=== PATIENT | female | born 1990 | race Caucasian/White ===

== ENCOUNTER 2016-09-09 11:03 | Emergency (ER) | payer OTHER ==
[2016-09-09] MEDS ORDERED: ALBUTEROL 3 ML DEYVIAL IH ONE (11:08)
--- NOTE | 2016-09-09 11:22 | EDPHY ---
H & P Stated Complaint: Asthma Exacerbation Time Seen by Provider: 09/09/16 11:09 HPI/ROS: CHIEF COMPLAINT: Asthma exacerbation HISTORY OF PRESENT ILLNESS: The patient is a 26 y/o female with asthma complaining of wheezing and shortness of breath onset suddenly while working this morning. She felt normal upon waking today and denies sore throat, fever, or rhinorrhea. Her wheezing improved with an albuterol nebulizer treatment upon arrival in the ED. She currently complains of chest tightness, but denies ongoing shortness of breath. She notes she started propranolol 1.5 month ago for tachycardia. She normally does not use any medication to control her asthma. Her last exacerbation was a few months ago when she walked into an operating room that had just been cleaned with bleach. REVIEW OF SYSTEMS: Constitutional: No fever, no chills Eyes: No visual changes ENT: No sore throat Respiratory: see HPI Cardiac: No chest pain Gastrointestinal: No nausea, no vomiting, no abdominal pain Genitourinary: No hematuria, no dysuria Musculoskeletal: No leg pain or swelling Skin: No rash Neurological: No headache, no weakness Psychiatric: No depression Source: Patient - Personal History Current Tetanus/Diphtheria Vaccine: Yes Current Tetanus Diphtheria and Acellular Pertussis (TDAP): Yes - Medical/Surgical History PMH: PMH includes: 1. Asthma 2. Tachycardia - propranolol Hx Asthma: Yes Hx Chronic Respiratory Disease: No Hx Diabetes: No Hx Cardiac Disease: No Hx Renal Disease: No Hx Cirrhosis: No Hx Alcoholism: No Hx HIV/AIDS: No Hx Splenectomy or Spleen Trauma: No Other PMH: asthma - Social History Smoking Status: Never smoked Additional Social History: Non-smoker. PCP: Dr. Afsaneh Valenzuela - Physical Exam Exam: General Appearance: Alert, no distress Eyes: Pupils equal and round, no conjunctival pallor or injection ENT, Mouth: Mucous membranes moist Neck: Normal inspection Respiratory: Lungs are clear to auscultation Cardiovascular: Regular rate and rhythm Gastrointestinal: Abdomen is soft and non- tender Neurological: A&O, nonfocal, normal gait Skin: Warm and dry, no rash Extremities: Nontender, no pedal edema Psychiatric: Mood and affect normal Constitutional: Initial Vital Signs Temperature (C) 36.9 C 09/09/16 11:08 Heart Rate 65 09/09/16 11:08 Respiratory Rate 14 09/09/16 11:08 Blood Pressure 131/81 H 09/09/16 11:08 O2 Sat (%) 99 09/09/16 11:08 O2 Delivery Mode Room Air Allergies/Adverse Reactions: azithromycin Allergy (Verified 09/09/16 11:07) morphine Allergy (Verified 09/09/16 11:07) Home Medications: Medication Instructions Recorded Albuterol 2 puffs IH TID PRN #1 aerosol 09/09/16 Fluticasone/Salmeter 250/50Mcg 1 each IH DAILY #1 disk 09/09/16 [Advair 250/50 (*)] Medical Decision Making ED Course/Re-evaluation: This is a 26 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 RN noted expiratory wheezing on his initial exam. These resolved by my assessment after an albuterol nebulizer. The patient continues to complain of chest tightness, but her dyspnea has resolved. Plan to monitor for recurrent symptoms. Patient has not had recurrent wheezing while here. Feels much better and wants to go home. She will be discharged with scripts for Advair and albuterol and referral to follow up with her PCP. Return precautions given. She is comfortable with this plan. - Data Points Medications Given: Discontinued Medications Albuterol (Proventil Neb) 3 ml IH EDNOW ONE Stop: 09/09/16 11:09 Last Admin: 09/09/16 11:11 Dose: 3 ml Albuterol Sulfate (Proventil Inh Prepack) 1 mdi TAKEHOME EDNOW ONE Stop: 09/09/16 12:03 Last Admin: 09/09/16 12:04 Dose: 1 mdi Departure - Departure Disposition: Home, Routine, Self-Care Clinical Impression: Exacerbation of asthma Condition: Good Instructions: Asthma (ED), Albuterol (By breathing), Fluticasone/Salmeterol ( By breathing) Additional Instructions: 1. Use Advair daily as prescribed. 2. Use 2 puffs of albuterol inhaler up to 3 times daily as needed for wheezing or shortness of breath. 3. 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 4. Return to the ED for any worsening of condition. Referrals: Aimee Valenzuela PA [Primary Care Provider] - As per Instructions Prescriptions: Fluticasone/Salmeter 250/50Mcg [Advair 250/50 (*)] 1 each IH DAILY #1 disk Albuterol 2 puffs IH TID PRN #1 aerosol PRN Reason: Wheezing Report Scribed for: Lucy Bro Report Scribed by: Daya Garces Date of Report: 09/09/16 Time of Report: 11:23 Physician Review and Approval Statement: 09/09/16 11:23 Portions of this note were transcribed by a medical imaging technician. I personally performed a history, physical exam, medical decision making, and confirmed accuracy of information the transcribed note.
[2016-09-09] MEDS ORDERED: ALBUTEROL INH PREPACK MDI TAKEHOME ONE ×2 (12:01→12:02)
[2016-09-09 12:04] VITALS: BP 114/65; PULSE 58; RESP 16; TEMP 97; O2SAT 96
== END 2016-09-09 12:07 | disposition home or self-care (01) ==
DX: J45.901 Unspecified asthma with (acute) exacerbation (principal)

== ENCOUNTER 2016-10-04 11:28 | Emergency (ER) | payer OTHER ==
[2016-10-04] MEDS ORDERED: DEXAMETHASONE 10 MG/ML VIAL ONE (11:32)
[2016-10-04] MEDS ORDERED: IPRATROPIUM/ALBUTEROL 3 ML DEYVIAL ONE ×2 (11:32→12:40)
[2016-10-04] MEDS ORDERED: DEXAMETHASONE VARIABLE DOSE IVP/PO ONE (11:35)
[2016-10-04] MEDS ORDERED: IPRATROPIUM/ALBUTEROL 3 ML DEYVIAL IH ONE ×3 (11:38→12:41)
[2016-10-04] MEDS ORDERED: NS 1,000 ML IV ONE (11:38)
--- NOTE | 2016-10-04 11:40 | EDPHY ---
H & P Time Seen by Provider: 10/04/16 11:34 - Medical/Surgical History Hx Asthma: Yes Hx Chronic Respiratory Disease: No Hx Diabetes: No Hx Cardiac Disease: No Hx Renal Disease: No Hx Cirrhosis: No Hx Alcoholism: No Hx HIV/AIDS: No Hx Splenectomy or Spleen Trauma: No Other PMH: asthma - Social History Smoking Status: Never smoked Constitutional: Initial Vital Signs Temperature (C) 37 C 10/04/16 11:28 Heart Rate 69 10/04/16 11:28 Respiratory Rate 25 H 10/04/16 11:28 Blood Pressure 152/99 H 10/04/16 11:28 O2 Sat (%) 96 10/04/16 11:28 O2 Delivery Mode Room Air Allergies/Adverse Reactions: azithromycin Allergy (Verified 09/09/16 11:07) milk Allergy (Verified 10/04/16 11:38) morphine Allergy (Verified 09/09/16 11:07) Home Medications: Medication Instructions Recorded Albuterol 2 puffs IH TID PRN #1 aerosol 09/09/16 Fluticasone/Salmeter 250/50Mcg 1 each IH DAILY #1 disk 09/09/16 [Advair 250/50 (*)] Albuterol [Proventil Inhaler] 1 - 2 puffs IH Q4 #1 mdi 10/04/16 Famotidine [Pepcid 20 MG (OTC)] 20 mg PO DAILY #10 tab 10/04/16 Propranolol HCl 10/04/16 predniSONE 40 mg PO DAILY #10 tab 10/04/16 Medical Decision Making ED Course/Re-evaluation: CHIEF COMPLAINT: Asthma exacerbation secondary to allergic reaction HISTORY OF PRESENT ILLNESS: 26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 She developed a rash on her forehead potentially from the OR hat which she has worn many times. She then developed redness on her trunk and began wheezing significantly. She does have a significant asthma history. She denies any other symptoms or any other exposures. REVIEW OF SYSTEMS: A 10 point review of systems was performed and is negative with the exception of the elements mentioned in the history of present illness. PHYSICAL EXAM: HR, BP, O2 Sat, RR. Temp noted General Appearance: Alert, well hydrated, appropriate, and non-toxic appearing. She is red on her trunk and wheezing a bit Head: Atraumatic without scalp tenderness or obvious injury Eyes: Pupils equal, round, reactive to light and accommodation, EOMI, no trauma , no injection. Ears: Clear bilaterally, no perforation, normal landmarks Nose: Atraumatic, no rhinorrhea, clear. Throat: There is no erythema or exudates, no lesions, normal tonsils, mucus membranes moist. Neck: Supple, 2+ carotid upstroke, nontender, no lymphadenopathy. Respiratory: No retractions, no distress, significant wheezes in all jara, and no accessory muscle use. Lungs are clear to auscultation bilaterally. Cardiovascular: Regular rate and rhythm, no murmurs, rubs, or gallops. Bilateral carotid, radial, dorsalis pedis, and posterior tibial pulses intact. Good capillary refill all extremities. Gastrointestinal: Abdomen is soft, nontender, non-distended, no masses, no rebound, no guarding, no peritoneal signs. Musculoskeletal: Normal active ROM of all extremities, atraumatic. Neurological: Alert, appropriate, and interactive. The patient has normal DTRs and non-focal cranial nerves, motor, sensory, and cerebellar exam. Skin: Truncal erythematous rash with urticarial component that is confluent. good turgor, no nodules on palpation. 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 The 12 lead EKG was interpreted by myself. See hard copy and/or "tracemaster" electronic copy for interpretation. Normal sinus mechanism no ischemia MEDICAL DECISION MAKING: This patient is having an allergic reaction which is caused her to have an asthma exacerbation. She received 0.3 mg of epinephrine IM upon her arrival. She is receiving a duo nebulizer treatment. She is receiving Heliox. I also gave her 10 mg of IV Decadron and 40 mg of IV Pepcid and 25 mg of IV Benadryl. She is feeling much much better at this point. On serial examination her rash in wheezing or completely gone. I will keep her on prednisone for 5 days and she will follow up with her primary care doctor. She did develop some chest tightness during her asthma exacerbation which is resolved. I performed an EKG during that tightness and it is unremarkable. - Data Points Medications Given: Discontinued Medications Albuterol/Ipratropium (Duoneb) 3 ml IH EDNOW ONE Stop: 10/04/16 11:39 Last Admin: 10/04/16 11:40 Dose: 3 ml Albuterol/Ipratropium (Duoneb) 3 ml IH EDNOW ONE Stop: 10/04/16 12:41 Last Admin: 10/04/16 12:44 Dose: 3 ml Dexamethasone Sodium Phosphate (Decadron) 10 mg IVP/PO EDNOW ONE Stop: 10/04/16 11:36 Last Admin: 10/04/16 11:40 Dose: 10 mg Epinephrine HCl (Epinephrine) 0.3 mg IM EDNOW ONE Stop: 10/04/16 11:39 Last Admin: 10/04/16 11:40 Dose: 0.3 mg Famotidine (Pepcid) 40 mg IVP EDNOW ONE Stop: 10/04/16 12:03 Last Admin: 10/04/16 12:10 Dose: 40 mg Sodium Chloride (Ns) 1,000 mls @ 0 mls/hr IV EDNOW ONE PRN Reason: Wide Open Stop: 10/04/16 11:39 Last Admin: 10/04/16 11:42 Dose: 1,000 mls Ketorolac Tromethamine (Toradol) 30 mg IVP EDNOW ONE Stop: 10/04/16 12:03 Last Admin: 10/04/16 12:08 Dose: 30 mg Departure - Departure Disposition: Home, Routine, Self-Care Clinical Impression: Allergic reaction, Exacerbation of asthma Condition: Good Instructions: Urticaria (ED), Asthma (ED) Prescriptions: Famotidine [Pepcid 20 MG (OTC)] 20 mg PO DAILY #10 tab Albuterol [Proventil Inhaler] 1 - 2 puffs IH Q4 #1 mdi predniSONE 40 mg PO DAILY #10 tab
--- NOTE | 2016-10-04 11:54 | CPEKG ---
Heart Rate: 65 RR Interval: 923 P-R Interval: 152 QRSD Interval: 76 QT Interval: 420 QTC Interval: 437 P [place]: 55 QRS [place]: 67 T Wave [place]: 37 EKG Severity - NORMAL ECG - EKG Impression: SINUS RHYTHM Electronically Signed By: Ricky Jin 04-Oct-2016 12:50:34
[2016-10-04] MEDS ORDERED: KETOROLAC 30 MG/1 ML SDV IVP ONE (12:02)
[2016-10-04] MEDS ORDERED: FAMOTIDINE 20 MG/2 ML SDV IVP ONE (12:02)
[2016-10-04] MEDS ORDERED: KETOROLAC 30 MG/1 ML SDV ONE (12:03)
[2016-10-04 13:31] VITALS: BP 101/63; PULSE 74; RESP 20; TEMP 98.1; O2SAT 97
== END 2016-10-04 13:33 | disposition home or self-care (01) ==
DX: T78.40XA Allergy, unspecified, initial encounter (principal); J45.901 Unspecified asthma with (acute) exacerbation
CPT/HCPCS: 96374; J1885

== ENCOUNTER 2016-12-05 09:13 | Day surgery (SDC) | payer OTHER ==
[2016-12-05] MEDS ORDERED: LR 1,000 ML IV ONE (09:49)
[2016-12-05] MEDS ORDERED: ROPIVACAINE HCL 20 MG/10 ML INJ EP ONE ×3 (10:09→11:30)
[2016-12-05] MEDS ORDERED: ceFAZolin 2 GM/DEXTROSE 100 ML IV ONE (10:30)
[2016-12-05] MEDS ORDERED: BUPIVACAINE 0.25% 30 ML SDV ONE (11:01)
[2016-12-05] MEDS ORDERED: PROPOFOL/EMULSION 500 MG/50 ML BOTTLE IV ONE (11:10)
[2016-12-05] MEDS ORDERED: fentaNYL 100 MCG/2 ML INJ ONE (11:10)
[2016-12-05] MEDS ORDERED: DEXAMETHASONE 4 MG/ML VIAL ONE (11:21)
[2016-12-05] MEDS ORDERED: ONDANSETRON 4 MG/2 ML VIAL ONE (12:59)
--- NOTE | 2016-12-05 14:20 | GOP ---
[f rep st] OPERATIVE REPORT DATE OF OPERATION: 12/05/2016 SURGEON: Laura Luis MD ETCHER APPRENTICE PHOTOENGRAVING: Kathy Simental, PAC was medically required for positioning of the leg during arthroscopi c ACL reconstruction and careful retraction of vital neurovascular structures during hamstring harve st. PREOPERATIVE DIAGNOSIS: Left knee anterior cruciate ligament tear, medial meniscus tear, synovitis, lateral meniscus tear. POSTOPERATIVE DIAGNOSIS: Left knee anterior cruciate ligament tear, medial meniscus tear, synovitis , lateral meniscus tear. PROCEDURE PERFORMED: 1. Arthroscopic anterior cruciate ligament reconstruction with a semitendinosus gracilis hamstring autograft. 2. Arthroscopic extensive synovectomy. 3. Arthroscopic partial lateral meniscectomy. FINDINGS: ESTIMATED BLOOD LOSS: Minimal. INDICATIONS: 26-year-old female, injury to the left knee. Clinical radiographs and MRI confirmed A CL tear, meniscal pathology. Also had a tibial plateau injury and fracture. She waited out to heal the plateau fracture as well as range of motion and swelling control. The patient elects for opera tive intervention of unstable knee. DESCRIPTION OF PROCEDURE: Patient identified in the preoperative holding area. Consent, laterality , and preoperative antibiotics were confirmed delivered, and all questions were answered. The knee had no swelling. Skin looked excellent. She had a small keloid on the anterolateral patella. She had full flexion, symmetric to 150 degrees, unstable Donald's, positive pivot-shift. The patient was brought into the operating room. Spinal anesthesia. She had monitored anesthesia c are. Left thigh tourniquet placed. Left lower extremity prepped and draped in the usual sterile fa shion. Surgical time-out was performed. She cooperated with the surgical time-out in the operating room as well. Hamstring harvest ensued. Made a pes incision. Blunt dissection down to the pes tendons. Sartoriu s fascia was taken in line. We harvested the semitendinosus, and this looked small, and thus, we deluna rvested the gracilis as well, put it on the back table. We stripped off the muscle and fashioned a quadrupled over semitendinosus gracilis graft according to the Arthrex graft link, with 2 reversed t ensioning tightropes. I set this to a 20 funes-meter tension. Attention was then turned to the arthroscopic portion. Esmarch exsanguination to 250 mmHg. Total t ourniquet time was 50 minutes. Standard 2-portal technique diagnostic arthroscopy included grade 0 patella, grade 0/1 scuffing of the trochlea. The medial compartment looked excellent. The medial m eniscus had no evidence of injury. There was no redness of the meniscal capsular junction. This wa s intact and stable. The ACL was torn just off the femoral insertion and footprint. No cyclops les ion. It was 99% tear off the posterolateral bundle and anteromedial bundle. The lateral meniscus l ooked frayed at the posterior root. It was nice and stable. The cartilage was grade 0. Extensive synovectomy was performed of the anterior, medial, lateral compartment to improve with visualization and take care of the synovitis. We did an ACL debridement. Marked the posterior bifurcate ridge f or the femoral insertion and marked tangential to the anterior horn lateral meniscus. With FlipCutt ers on either side, we did a 22 mm socket with a 40 mm interosseous length. We parked loops of sutu res on either side, and then passed the graft easily to predetermined marin at the 20 mm broderick of gra ft with 20 mm of graft into each socket. We took the knee through a flexion-extension cycle of abou t 25 times and then full extension with reversed Donald. We tensioned down the tightropes. We too k final fluoroscopic pictures in 90 degrees flexion extension without any impingement. All debris w as removed. We removed all fluid. We closed the portals with nylon, and the lateral-based incision of the thigh with nylon, as she stated that she does get keloids. We closed the pes anserinus inci audelia with 4-0 Monocryl and nylon, all monofilament sutures. She states that Vicryl does not agree w ith her. Xeroform, 4 x 4's, ABD, Kam wrap used. GRAFT CONSTRUCT: A 10 mm quadrupled semitendinosus gracilis graft, 69 mm running length, 10 mm diam eter, 20 funes-meter tension. COMPLICATIONS: None. TOTAL TOURNIQUET TIME: 50 minutes. DISPOSITION: Extubated, awake, to the PACU in stable condition. /[id number]/MODL
== END 2016-12-05 14:25 | disposition home or self-care (01) ==
LOC: FSGY 09:13
PROVIDERS: ATTEND Orthopaedic Surgery
PROC: 0KBR0ZZ Excision of Left Upper Leg Muscle, Open Approach (ICD-10-PCS; principal; 2016-12-05 10:45)
PROC: 0MQP4ZZ Repair Left Knee Bursa and Ligament, Percutaneous Endoscopic Approach (ICD-10-PCS; principal; 2016-12-05 10:45)
PROC: 0SBD4ZZ Excision of Left Knee Joint, Percutaneous Endoscopic Approach (ICD-10-PCS; principal; 2016-12-05 10:45)
DX: S83.512A Sprain of anterior cruciate ligament of left knee, initial encounter (principal); S83.242A Other tear of medial meniscus, current injury, left knee, initial encounter; M65.862 Other synovitis and tenosynovitis, left lower leg; S83.282A Other tear of lateral meniscus, current injury, left knee, initial encounter
CPT/HCPCS: C1713; J0690; J1100; J1200; J2405; J2704; J2795; J3010

== ENCOUNTER → 2017-08-09 | Outpatient (CLI) | payer OTHER | LOC: FIMAGING 15:12 | PROVIDERS: ATTEND Orthopaedic Surgery | DX: M71.22 Synovial cyst of popliteal space [Baker], left knee (principal) ==

== ENCOUNTER 2018-07-17 14:47 | Emergency (ER) | payer OTHER ==
[2018-07-17 14:53] VITALS: BP 129/57
--- NOTE | 2018-07-17 15:30 | EDPHY ---
H & P Time Seen by Provider: 07/17/18 15:20 HPI/ROS: CLINICAL IMPRESSION: Chemical exposure right eye ASSESSMENT/PLAN: 28-year-old female, employee of [employer], presents to the emergency department after she was accidentally splashed in the right eye in the operating room while mixing the liquid contents for bone cement. Patient had 15 min of eye wash station immediately after the incident. She was wearing glasses at the time. She reports improvement in her symptoms. She has mild stinging to the eye but no associated vision changes and had a baseline visual acuity in the ER. Slit-lamp exam shows no evidence of corneal ulceration, Lester sign, corneal abrasion, or foreign body. Patient advised to follow up with employee health and Ophthalmology. Referrals provided. Warning signs for ED return sooner outlined and discharge CHIEF COMPLAINT: Right eye pain HPI: 28-year-old female presents to the emergency department with complaints of eye pain. Patient is an employee at [employer], was in the operating room, was mixing chemicals to make bone cement when the liquid portion of the chemical accidentally splashed into her right eye. Patient was wearing glasses and reports only a very small amount make contact with her eye. She immediately went to the eye wash station for at least 15 min. She has no complaints of vision loss, foreign body sensation, discharge from the eye, light sensitivity. PMH: None reported Social History: [employer] employee ROS: A full 10 point review of systems was negative except for those mentioned in HPI. PHYSICAL EXAM: General Appearance: Alert, oriented, appropriate, cooperative, NAD, well hydrated, non-toxic appearing, VSS, no hypoxia. Eyes: PERRLA, no acute vision change, nystagmus, swelling, discharge, pain or photosensitivity. Conjunctiva pink, no pallor or injection, slit-lamp exam reveals no evidence of corneal ulceration, corneal abrasion, Lester sign, or foreign body Skin: Warm, dry, no rashes, no nodules on palpation. MDM: Patient was seen independently by established practice protocols. Secondary supervising physician at time of evaluation was Dr. Bro. Diagnosis: Right eye chemical exposure. New, requires workup Summary: See Assessment and Plan for summary of ED visit Risk of comlications, morbidity, mortality: Presenting problem low Diagnostic procedures low Management Options low Patient Progress: Stable. Smoking Status: Never smoked Constitutional: Initial Vital Signs Temperature (C) 36.7 C 07/17/18 14:51 Heart Rate 78 07/17/18 14:51 Respiratory Rate 17 07/17/18 14:51 Blood Pressure 129/57 H 07/17/18 14:51 O2 Sat (%) 97 07/17/18 14:51 O2 Delivery Mode Room Air Allergies/Adverse Reactions: azithromycin Allergy (Verified 07/17/18 14:50) milk Allergy (Verified 07/17/18 14:50) morphine Allergy (Verified 07/17/18 14:50) Home Medications: Medication Instructions Recorded Fluticasone/Salmeter 250/50Mcg 1 each IH DAILY #1 disk 09/09/16 [Advair 250/50 (*)] EPINEPHrine KIT [Epipen Kit] 0.3 mg IM ONCE #1 inj 10/04/16 Propranolol HCl 10/04/16 Aleve 11/30/16 Lexapro 11/30/16 Albuterol [Ventolin Hfa Inhaler] 12/05/16 Fluticasone/Salmeter 250/50Mcg 12/05/16 [Advair 250/50 (*)] MDM/Departure - Depart Disposition: Home, Routine, Self-Care Clinical Impression: Chemical exposure of eye Condition: Good Instructions: Eye Pain (ED) Additional Instructions: Please follow-up with Employee Health as needed. Use rewetting drops at home, consider using Systane or refresh. Please follow up with Ophthalmology if you developed eye pain, vision changes, discharge from the eye, redness or swelling of the eye, or any other concerns. Return to the ED for any other concerns. Referrals: NONE *PRIMARY CARE P,. [Primary Care Provider] - As per Instructions Carla Figueroa MD [Medical Doctor] - As per Instructions
== END 2018-07-17 15:43 | disposition home or self-care (01) ==
DX: H57.9 Unspecified disorder of eye and adnexa (principal); Z77.098 Contact with and (suspected) exposure to other hazardous, chiefly nonmedicinal, chemicals; Y99.0 Civilian activity done for income or pay